=== PATIENT | female | born 1960 | race Caucasian/White ===

== ENCOUNTER 2017-02-20 18:18 | Emergency (ER) | payer BC ==
[~2017-02-20] VITALS: Ht 167.6 cm; Wt 79.4 kg
[~2017-02-20 18:18] MED LIST: CARAFATE 11 GM/10 ML PO; CELEBREX200 MG PO; DONNATAL PO; DOXYCYCLINE100 M7 PO; Glucosamine500 MG PO; HYDROXYZINE HCL25 M1 PO; MEDROL 4MG. DOSE4 MG PO; METOPROLOL SUCC50 M2 PO; NORCO 325 MG-51 TAB PO; PROBIOTIC FORMU1 CA2 PO; RANITIDINE300 MG PO; ROBAXIN-750750 MG PO; SINGULAIR10 MG PO; VITAMIN D1000 IU PO; ZYRTEC10 M3 PO
[2017-02-20 18:44] LABS: LYMPH # 4.4 K/mm3 (0.7-4.5); LYMPH % 31.7 % (10-50.0)
[2017-02-20 18:52] LABS: HEMOGLOBIN 14.2 g/dL (12.2-16.2)
[2017-02-20] MEDS ORDERED: MECLIZINE HYDRO25 MG PO (18:57)
[2017-02-20] MEDS ORDERED: ZOFRAN ODT4 MG PO (18:57)
--- NOTE | 2017-02-20 18:58 | Emergency Room Report ---
See Addendum History of Present Illness Time Seen by 1834 Presenting Problem in Triage Pt arrived:Wheelchair Presenting Problem:HAS HAD VOMITING SINCE THE MINUTE SHE WOKE UP AT 1645 TODAY. 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 N Clinical Suspician of Infection? N Mental Status: 1 - Regular (Normal Baseline) Sepsis Risk:Low Sepsis Risk Have you (or family members/close friends) recently traveled outside the [place]? N If Yes, where/when: Have you had exposure to infectious disease within the past month? TB? Other? Specify: I agree with above history. 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 she said her alarm went off at 4:30 and she was awakened with a piercing headache dizziness diaphoresis nausea and vomiting until she arrived to the ED. She reports vomiting every time she moves her head. Almost fell in the shower but there is no trauma. She denies having chest pain abdominal pain headache or neck pain. Has history of seasonal ALLERGIES, ALLERGIES to mold and dust mites. Singulair and other antihistamine. Source patient, RN notes reviewed, family Exam Limitations no limitations ALLERGIES Coded Allergies: NSAIDS (Non-Steroidal Anti-Inflamma (Severe, GASTRITIS 02/20/17) amoxicillin (From AUGMENTIN) (Severe, GASTRITIS 02/20/17) clavulanic acid (From AUGMENTIN) (Severe, GASTRITIS 02/20/17) codeine (Intermediate, I-ITCHING 02/20/17) tramadol (Intermediate, I-ITCHING 02/20/17) morphine (HURTS WITH IV INJECTION 02/20/17) Home Medications Active Scripts PHENOBARB/HYOSCY/ATROPINE/SCOP ( Elixir) 10 ML PO QID #120 ML Prov: 04/21/15 Sucralfate (Carafate Oral Susp (Disp 30 day supply)) 1 GM PO ACHS #120 EACH Prov: 04/21/15 Reported Medications Glucosamine Hydrochloride (Glucosamine) 500 MG PO DAILY Montelukast Sodium (Singulair) 10 MG PO QHS CETIRIZINE HCL (Zyrtec) 20 MG PO BID Probiotic Formula 1 CAP PO DAILY CHOLECALCIFEROL (VITAMIN D3) (Vitamin D3) 50,000 IUNITS PO WED Celecoxib (Celebrex) 200 MG PO DAILY #30 Metoprolol Succinate 50 MG PO DAILY #30 Ranitidine Hydrochloride (Ranitidine) 600 MG PO DAILY #60 HYDROXYZINE HCL (Hydroxyzine HCl) 25 MG PO DAILY #60 History Medical History General CAD? No Angina: No PA: No Hypertension? Yes Hyperlipidemia? No CHF? No DVT? No PE? No COPD? No Asthma? No Anemia? No GERD? No Gastric ulcers? No GI Bleed? No Hernia? No Thyroid Problems? No Hypothyroidism? No CVA? No Seizures? No Diabetes? No Renal Insuffiency? No End Stage Renal Disease? No UTI? No Stones? No BPH? No GB Disease: Yes Nephritic Syndrome? No Asplenia? No Hepatitis? No Sickle Cell Disease? No Arthritis? Yes Migraines? No Cataracts? No Glaucoma? No MRSA? No HIV? No TB? No Anxiety? No Depression? No Cancer? No More? Yes Additional hx: SPASTIC ESOPHAGUS Immunization Hx Ped.Immunizations UTD Yes DT/Tetanus > 10 Years Ago Flu Refused Pneumonia Received In Past Surgical Hx Previous Surgery?Y ARCH RELEASE RT FOOT RT KNEE RT SHOULDER APPY HYSTERECTOMY CHOLES. NURSING PROGRAM MANAGER Hx LMP N/A Family History Family Hx Diabetes No CAD Yes Hypertension Yes Hyperlipidemia Yes Cancer Yes TB No Social History Smoking Hx Smoker: Never Smoker Tobacco: No Type N/A Packs/day N/A Are you/the child exposed to second-hand smoke: No Alcohol Alcohol: No Review of Systems All Other Systems Reviewed and Negative Constitutional see HPI, diaphoresis Eyes no symptoms reported ENT no symptoms reported. Respiratory no symptoms reported Cardiovascular no symptoms reported Gastrointestinal see HPI, vomiting Genitourinary no symptoms reported. Musculoskeletal no symptoms reported Skin no symptoms reported Psychiatric/Neurological see HPI Physical Exam Vital Signs Vital Signs Date Time Temp Pulse Resp B/P Pulse O2 O2 Flow FiO2 Ox Delivery Rate 02/20 1903 57 16 139/69 99 02/20 1821 98.3 51 18 133/101 98 - WBC >12,000 or <4,000 or 10% bands? 2 or more SIRS Criteria Met? B/P:133/101 MAP:111 Creatinine >2.0? UA output<0.5ml/kg/hr for 2 hrs? Platelet count >100,000? Lactate >2.0mmol/1? INR >1.2 or PTT > than 60 sec? Evidence of Organ Dysfunction? Provider documented clinical suspician of infection? N Sepsis Criteria Count: 0 Sepsis Risk: Low Sepsis Risk General Appearance normal appearance, WD/WN Eye Exam - bilateral eye normal exam (no nystagmus), bilateral eye PERRL, bilateral eye EOMI Ear, Nose, Throat hearing grossly normal, positive head turning test on the upright position to upright Neck normal inspection, non-tender, supple, full range of motion Respiratory Status Yes: trachea midline, chest symmetrical, non tender chest. No: respiratory distress. Lung Sounds bilateral: normal breath sounds, lungs clear. 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 Intact finger to nose test. The pronator drift. No focal deficits. Reflexes Reflexes normal Yes Mental status normal mood/affect Skin intact, normal color, warm/dry Medical Decision Making LABS/Meds/Orders Pt receiving controlled substance in ED? No Results/Orders Laboratory Tests 02/20/17 1820: Sodium 137, Potassium 4.0, Chloride 103, Carbon Dioxide 26, BUN 25 H, Creatinine 1.1 H, Estimated Creat Clear 72, Estimated GFR (MDRD) 52 L, Glucose 141 H, Calcium 9.2, Total Bilirubin 0.5, AST 8 L, ALT 27, Alkaline Phosphatase 64, Creatine Kinase 44, CK-MB (CK-2) Rel Index 1.1, CK and CKMB Interp < 0.5, Troponin I < 0.02, Total Protein 8.0, Albumin 3.9, Globulin 4.1 H, Albumin/ Globulin Ratio 1.0 L, WBC 13.9 H, RBC 4.48, Hgb 14.2, Hct 42.4, MCV 94.7, RDW 12.0, Plt Count 348, MPV 7.6, Gran % 60.7, Gran # 8.4 H, Lymphocytes % 31.7, Monocytes % 4.6, Eosinophils % 2.5, Basophils % 0.4, Lymphocytes # 4.4, Monocytes # 0.6, Eosinophils # 0.4, Basophils # 0.1, PUBS MCHC 33.4, MCH 31.6 H Current Medication Orders Sig/Kelsi Start time Last Medication Dose Route Stop Time Status Admin Meclizine HCl 0 .STK-MED ONE 02/20 1902 DC .ROUTE Meclizine HCl 25 MG ONCE ONE 02/20 1900 DC 02/20 PO 02/20 Ondansetron HCl 4 MG ONCE ONE 02/20 183 DC 02/20 IV 02/20 183 190 Sodium Chloride 10 ML PRN PRN 02/20 183 AC IV 02/21 181 Sodium Chloride 1,000 ML .Q1H1M 02/20 183 DC 02/20 IV 02/20 193 190 Sodium Chloride 10 ML PRN PRN 02/20 1830 AC IV 02/21 1820 Orders Procedure Date/time Status DIET-NOTHING BY MOUTH 02/[address] HEAD W/O CONTRAST 02/20 1822 Active ELECTROCARDIOGRAM REQUEST 02/[address] HEAD REQ 02/21 1820 Complete CHEST-PORTABLE 02/21 1820 Active IV SALINE LOCK 02/21 1820 Active CBC WITH AUTO DIFF 02/21 1820 Complete CARDIAC ENZYMES 02/21 1820 Complete CHEM 12 PROFILE 02/21 1820 Complete 12 LEAD EKG-ENDY (INITIAL) 02/20 UNK Active CM/EKG CM/EKG EKG no evid. of ischemic chgs, sinus bradycardia 54/m normal. QRS and T waves no acute findings Departure Departure Time of Disposition 1946 Disposition DC Home or Self Care(routine) Clinical Impression Primary Impression: Vertigo Secondary Impressions: Hypertension, Multiple allergies Condition STABLE Referrals Shahriar MARIE,A.C. (Family) Additional Instructions The patient felt better after zofran and antivert. she denies hedache, neck pain, chest pain or abdominal pain. she was will for outpatient therapy and she will return for any change of sx. She would like to follow up with Dr Jostin Carvajal for vertigo follow up with Dr Arnold for allergies. See the pcp on Wednesday. Discharge Counseling Counseled pt/family regarding diagnosis, test results, medications/RX, home care, follow up needs Prescriptions Current Visit Scripts Meclizine Hcl (Meclizine Hydrochloride) 25 MG PO TIDP PRN vertigo #21 CTB Ref 1 Ondansetron (Zofran 4MG Odt) 4 MG PO Q6HP PRN NAUSEA AND VOMITING #12 ODT ED Critical Care Critical Care No If Critical Care minutes are documented, the time involved in the performance of seperately reportable procedures was not counted toward critical care time documented. I directly delivered medical care to this critically ill and/or injured patient. Timely evaluation and treatment was necessary to address the significant organ system(s) dysfunction present in this patient. at 1949
[2017-02-20 19:04] LABS: BUN 25 mg/dL (7-18)
[2017-02-20 19:05] LABS: GFR (ESTIMATED) 52 ML/MIN (59-)
[2017-02-20 20:07] VITALS: BP 134/61
--- NOTE | 2017-02-21 06:32 | RADIOLOGY REPORT PS360 ---
CHEST-PORTABLE HISTORY: DIAPHORESIS,N/V,HEAD PAIN ORDERING PHYSICIAN: Mary Cisneros MD PATIENT AGE: 56 years COMPARISON: 10/01/2015 FINDINGS: Unremarkable cardiovascular structures. Multiple calcified granulomas are present. No lobar consolidation or collapse. No acute bony anomalies. IMPRESSION: Old granulomatous disease, no change with no acute finding
--- NOTE | 2017-02-21 06:49 | RADIOLOGY REPORT PS360 ---
CT HEAD W/O CONTRAST HISTORY: Headache/pain, nausea and vomiting HEAD PAIN, N/V ORDERING PHYSICIAN: Mary Cisneros MD PATIENT AGE: 56 years COMPARISON: None TECHNIQUE: Axial images obtained without contrast. Brain and bone windows reviewed. FINDINGS: No midline shift, mass effect, intracranial hemorrhage, hydrocephalus, or extra-axial fluid collection is evident. The calvarium has an unremarkable appearance. No mastoid effusion. The visualized paranasal sinuses are unremarkable. IMPRESSION: Negative CT head without contrast. No acute finding.
== END 2017-02-20 20:07 | disposition home or self-care (01) ==
LOC: ER 18:18
PROVIDERS: Emergency Medicine
DX: R42 Dizziness and giddiness (principal); I10 Essential (primary) hypertension; Z88.1 Allergy status to other antibiotic agents; Z88.6 Allergy status to analgesic agent; Z79.899 Other long term (current) drug therapy
CPT/HCPCS: J2405

== ENCOUNTER → 2017-03-15 | Outpatient (CLI) | payer BC ==
[~2017-03-15] MED LIST changes: +MECLIZINE HYDRO25 MG PO; +ZOFRAN ODT4 MG PO
--- NOTE | 2017-03-15 09:42 | RADIOLOGY REPORT PS360 ---
US [id number] HISTORY: Decreased renal function ABNORMAL LAB TEST ORDERING PHYSICIAN: Shelley ANDERSON PATIENT AGE: 56 years COMPARISON: None FINDINGS: RIGHT KIDNEY:9.7 x 5.2 x 7.2 cm. No hydronephrosis. Cortical thinning is present. No obvious mass or perinephric fluid collection LEFT KIDNEY:10 x 5.5 x 7.7 cm. No hydronephrosis. Probable left parapelvic renal cyst at [address] scan of 11/17/2010 also suggest this finding. Cortical thinning involves left kidney. OTHER FINDINGS: No other pertinent findings IMPRESSION: Bilateral renal cortical thinning with probable left parapelvic renal cyst area no hydronephrosis
== END ==
LOC: RAD 03-12 09:30
DX: R89.9 Unspecified abnormal finding in specimens from other organs, systems and tissues (principal)

== ENCOUNTER → 2017-04-20 | Outpatient (CLI) | payer BC ==
--- NOTE | 2017-04-22 09:35 | RADIOLOGY REPORT PS360 ---
DIG MAMM-SCREEN MARY W/CAD ORDERING PHYSICIAN : Saad Bess MD PATIENT AGE: 56 years GENDER: Female COMPARISON: Outside August 2011 and August 2007., With Prior H mh mammogram October 2014 : August 2011, October 2014 TECHNIQUE: Std CC & MLO images were obtained. R2 CAD reviewed. HISTORY:. No hormones no new complaints. No prior procedures Family history mother with breast cancer. Age 80 FINDINGS: Lower density breast with no dominant mass nor suspicious calcifications either breast. Minimal fibroglandular elements bilaterally most evident anterior breast. No significant new findings.. No dominant mass. No architectural changes or distortion. No significant suspicious calcifications. Lower density breast with generalized fatty replacement RIGHT BREAST: Stable LEFT BREAST: Small rim calcification area at the medial inferior left breast most compatible with a small area of fat necrosis. Be followed safely. IMPRESSION: ---- Negative/ Stable bilateral mammogram with no significant new findings. Bilateral follow-up one year recommended BI-RADS CATEGORY: 2_Benign RECOMMENDED FOLLOWUP: 12M 12 MONTH FOLLOW-UP (A letter has been sent to the patient regarding results of the study.)
== END ==
LOC: RAD 04-07 09:30
DX: Z12.31 Encounter for screening mammogram for malignant neoplasm of breast (principal)
CPT/HCPCS: G0202